=== PATIENT | male | born 2000 | race Caucasian/White ===

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

== ENCOUNTER → 2021-07-07 06:27 | Outpatient (CLI) | payer OTHER, SELFPAY ==
--- NOTE | 2021-07-07 06:35 | MRI_ITS ---
HISTORY: Low back pain. TECHNIQUE: Multiplanar and multisequence MR images of the lumbar spine. IV Contrast dosage and agent: None. # of images incl. paperwork: 126. COMPARISON: None. FINDINGS: VERTEBRAE: Vertebral body heights maintained. Degenerative bone marrow endplate changes at L5-S1. ALIGNMENT: No significant anterior or posterior subluxation. CONUS: Normal morphology and position at T12-L1. SOFT TISSUES: No paraspinal fluid collection. INTERVERTEBRAL DISCS: T12-L1: No significant posterior disc herniation, central canal stenosis, or foraminal narrowing. L1-2: No significant posterior disc herniation, central canal stenosis, or foraminal narrowing. L2-3:No significant posterior disc herniation, central canal stenosis, or foraminal narrowing. L3-4: No significant posterior disc herniation, central canal stenosis, or foraminal narrowing. L4-5: No significant posterior disc herniation, central canal stenosis, or foraminal narrowing. L5-S1: Central disc extrusion with mild inferior migration resulting in mild central canal stenosis and abutment of the right S1 nerve root. MRI/Spine Lumbar (Routine) IMPRESSION: L5-S1 disc herniation resulting in mild central canal stenosis. at 0813 Reported and signed by: Jennifer Goode MD Electronically Signed: Jennifer Goode MD at 8:12 EDT Tel , Service support ,
== END ==
PROVIDERS: PCP Nurse Practitioner
DX: S33.5XXA Sprain of ligaments of lumbar spine, initial encounter (principal)
CPT/HCPCS: 72148